=== PATIENT | female | born 1940 | race Caucasian/White ===

== ENCOUNTER 2024-06-07 09:20 | Observation (INO) ==
--- NOTE | 2024-06-07 13:32 | DR.H&P ---
H&P History & Physical for Day of: H&P Date: 06/07/24 Chief Complaint Chief Complaint: weakness, ccc, UTI History of Present Illness History of Present Illness: Pt is 83 WF, direct admit for Post Influenza pneumonia and UTI. Pt has taken a round of augmentin. pt continues to co diffuse weakness, dehydration. Pt has pmh AFIB, CHF, LLE DVT, DM2 Medications Home Medications: Home Medications Medication Instructions Recorded Confirmed Type aspirin 81 mg capsule 81 mg PO DAILY 07/24/21 07/24/21 History atorvastatin 20 mg tablet 20 mg PO QHS 07/24/21 06/07/24 History insulin detemir U-100 100 unit/mL 20 unit subcut HS 07/24/21 07/24/21 History (3 mL) subcutaneous pen (Levemir FlexTouch U-100 Insulin) levothyroxine 25 mcg tablet 25 mcg PO DAILY 07/24/21 06/07/24 History meloxicam 15 mg tablet 15 mg PO DAILY 07/24/21 06/07/24 History ropinirole 1 mg tablet 1 mg PO QHS 07/24/21 06/07/24 History amlodipine 5 mg tablet 5 mg PO BID 06/07/24 06/07/24 History apixaban 5 mg tablet (Eliquis) 5 mg PO BID blood clot 06/07/24 06/07/24 History bumetanide 1 mg tablet 1 mg PO BID edema 06/07/24 06/07/24 History gabapentin 100 mg capsule 100 mg PO BID 06/07/24 06/07/24 History hydroxyzine pamoate 25 mg capsule 25 mg PO BID PRN itch 06/07/24 06/07/24 History insulin glargine 100 unit/mL (3 10 unit subcut BID 06/07/24 06/07/24 History mL) subcutaneous pen (Lantus Solostar U-100 Insulin) losartan 50 mg tablet 50 mg PO BID 06/07/24 06/07/24 History metformin 1,000 mg tablet 1,000 mg PO BID 06/07/24 06/07/24 History Allergies Allergies Allergy/AdvReac Type Severity Reaction Status Date / Time No Known Drug Allergies Allergy Verified 07/24/21 08:31 Review of Systems Constitutional: Chills and Weakness Eyes: No Symptoms Reported ENT: No Symptoms Reported Respiratory: Cough, Shortness of Breath and Sputum Cardiovascular: No Symptoms Reported Gastrointestinal: Nausea Genitourinary: Dysuria Musculoskeletal: No Symptoms Reported Skin: No Symptoms Reported Neurological: Weakness Oriented: Normal Eyes: Normal Ear: Normal Nose: Normal Throat: Dry Respiratory: RLL Diminished and LLL Diminished Cardiovascular: Normal; negative Edema Auscultation: Bowel Sounds: Normal Palpation: Normal Tenderness: Normal Musculoskeletal: Motor Deficit Psychiatric: Normal Affect: Normal Speech Pattern: Clear and Appropriate Assessment/Plan (1) Influenza with pneumonia: Status: Acute Plan: ADMIT, IV ATBX, RESP CONSULT SPUTUM AND BLOOD CULTURES ON ADMISSION IV HYDRATION BP CONTROL, PRN SUPPLEMENTAL O2 (2) UTI (urinary tract infection): Status: Acute (3) Atrial fibrillation: Status: Acute
[2024-06-07] MEDS: ROBITUSSIN DM PO SCH (13:49)
[2024-06-07] MEDS: NS 1,000 ML IV 1,000 ML IV SCH (13:49)
[2024-06-07] MEDS: ROCEPHIN VIAL 1 GRAM 1 G in NS 100 ML IV 100 ML IV SCH (13:49)
[2024-06-07 13:56] LABS: BASOPHILS # (AUTO) 0.1 X10^3/uL (0.0-0.1); BASOPHILS % (AUTO) 0.8 % (0.2-1.0); EOSINOPHILS # (AUTO) 0.2 x10^3/uL (0.0-0.2); EOSINOPHILS % (AUTO) 1.6 % (0.9-2.9); HEMOGLOBIN 13.3 g/dL (12.0-16.0); LYMPHOCYTES # (AUTO) 2.1 X10^3/uL (1.3-2.9); LYMPHOCYTES % (AUTO) 20.2 % (21.0-51.0); MEAN CORPUSCULAR HEMOGLOBIN 29.8 pg (27.0-34.0); MEAN CORPUSCULAR HGB CONC 34.1 g/dL (33.0-35.0); MEAN CORPUSCULAR VOLUME 87.5 fL (80.0-100.0); MEAN PLATELET VOLUME 8.1 fL (7.4-11.0); MONOCYTES # (AUTO) 0.8 x10^3/uL (0.3-0.8); MONOCYTES % (AUTO) 7.8 % (0.0-13.0); NEUTROPHILS # (AUTO) 7.2 x10^3/uL (2.2-4.8); NEUTROPHILS % (AUTO) 69.6 % (42.0-75.0); PLATELET COUNT 443 X10^3/uL (150.0-450.0); RED BLOOD COUNT 4.46 X10^6/uL (3.5-5.4); RED CELL DISTRIBUTION WIDTH 14.8 % (11.6-16.5); WHITE BLOOD COUNT 10.4 X10^3/uL (3.6-10.0)
[2024-06-07 14:08] LABS: ALANINE AMINOTRANSFERASE 17 Units/L (12-78); ALBUMIN 3.7 g/dL (3.4-5.0); ALKALINE PHOSPHATASE 79 Units/L (46-116); ASPARTATE AMINO TRANSFERASE 12 Units/L (15-37); BLOOD UREA NITROGEN 25 mg/dL (7-18); CALCIUM 9.4 mg/dL (8.5-10.1); CARBON DIOXIDE 31.1 mmol/L (21-32); CHLORIDE 99 mmol/L (98-107); COR NA(FOR HYPERGLY) 141 mmol/L (136-145); CREATININE 1.01 mg/dL (0.55-1.02); GLUCOSE 172 mg/dL (65-99); SODIUM 139 mmol/L (136-145); TOTAL PROTEIN 8.5 g/dL (6.4-8.2); eGFR NON BLACK RACES 56 (>60)
[2024-06-07] MEDS: DUONEB 0.5 MG/3 MG (3 mL) NEB SCH (17:14)
[2024-06-07] MEDS: SNACK - Diabetic Appropriate PO SCH (20:02)
[2024-06-07] MEDS: LIPITOR TAB 20 MG PO SCH (20:23)
[2024-06-07] MEDS: ELIQUIS PO SCH (20:23)
[2024-06-07] MEDS: COZAAR PO SCH (20:23)
[2024-06-07] MEDS: REQUIP PO SCH (20:23)
[2024-06-07] MEDS: PULMICORT NEB TX 0.5 MG NEB SCH (20:48)
[2024-06-08 06:25] LABS: BASOPHILS # (AUTO) 0.1 X10^3/uL (0.0-0.1); BASOPHILS % (AUTO) 1.1 % (0.2-1.0); EOSINOPHILS # (AUTO) 0.2 x10^3/uL (0.0-0.2); EOSINOPHILS % (AUTO) 2.5 % (0.9-2.9); HEMATOCRIT 33.8 % (36.0-47.0); HEMOGLOBIN 11.7 g/dL (12.0-16.0); LYMPHOCYTES # (AUTO) 2.5 X10^3/uL (1.3-2.9); LYMPHOCYTES % (AUTO) 25.7 % (21.0-51.0); MEAN CORPUSCULAR HEMOGLOBIN 29.9 pg (27.0-34.0); MEAN CORPUSCULAR HGB CONC 34.5 g/dL (33.0-35.0); MEAN CORPUSCULAR VOLUME 86.7 fL (80.0-100.0); MEAN PLATELET VOLUME 8.3 fL (7.4-11.0); MONOCYTES # (AUTO) 0.7 x10^3/uL (0.3-0.8); MONOCYTES % (AUTO) 6.9 % (0.0-13.0); NEUTROPHILS # (AUTO) 6.1 x10^3/uL (2.2-4.8); NEUTROPHILS % (AUTO) 63.8 % (42.0-75.0); PLATELET COUNT 397 X10^3/uL (150.0-450.0); RED CELL DISTRIBUTION WIDTH 15.1 % (11.6-16.5); WHITE BLOOD COUNT 9.6 X10^3/uL (3.6-10.0)
[2024-06-08 06:43] LABS: ALANINE AMINOTRANSFERASE 16 Units/L (12-78); ALBUMIN 2.9 g/dL (3.4-5.0); ALKALINE PHOSPHATASE 61 Units/L (46-116); ASPARTATE AMINO TRANSFERASE 11 Units/L (15-37); BLOOD UREA NITROGEN 17 mg/dL (7-18); CALCIUM 8.7 mg/dL (8.5-10.1); CARBON DIOXIDE 29.1 mmol/L (21-32); CHLORIDE 103 mmol/L (98-107); COR CA(FOR HYPOALB) 9.6 mg/dL (8.5-10.1); CREATININE 0.79 mg/dL (0.55-1.02); GLUCOSE 99 mg/dL (65-99); POTASSIUM 3.8 mmol/L (3.5-5.1); SODIUM 140 mmol/L (136-145); TOTAL PROTEIN 6.8 g/dL (6.4-8.2); eGFR NON BLACK RACES > 60 (>60)
--- NOTE | 2024-06-08 07:16 | RAD ---
EXAM:Two-view chestHISTORY:PneumoniaCOMPARISON: 022FINDINGS:Heart is enlarged. No congestive heart failure is noted. Shy are normal. Lung peterson are clear. No pleural effusions or pneumothoraces identified. Bony thorax is unremarkable with the exception of increased thoracic kyphosis.IMPRESSION:Cardiomegaly without congestive heart failureNo acute infiltratesTHIS IS AN ELECTRONICALLY VERIFIED FINAL REPORT06/08/2024 7:12 AM - Electronically signed by Jose Carrasco MD
[2024-06-08] MEDS: NORVASC TAB 10 MG PO SCH (08:19)
[2024-06-08] MEDS: SYNTHROID 25 mcg TAB PO SCH (08:19)
[2024-06-08] MEDS: NovoLIN R (or HumuLIN R) SUBCUT PRN (18:08)
[2024-06-09 06:42] LABS: BASOPHILS # (AUTO) 0.1 X10^3/uL (0.0-0.1); BASOPHILS % (AUTO) 1.7 % (0.2-1.0); EOSINOPHILS # (AUTO) 0.2 x10^3/uL (0.0-0.2); HEMATOCRIT 30.8 % (36.0-47.0); HEMOGLOBIN 10.6 g/dL (12.0-16.0); LYMPHOCYTES # (AUTO) 1.8 X10^3/uL (1.3-2.9); LYMPHOCYTES % (AUTO) 22.3 % (21.0-51.0); MEAN CORPUSCULAR HEMOGLOBIN 30.1 pg (27.0-34.0); MEAN CORPUSCULAR HGB CONC 34.3 g/dL (33.0-35.0); MEAN CORPUSCULAR VOLUME 87.9 fL (80.0-100.0); MEAN PLATELET VOLUME 8.6 fL (7.4-11.0); MONOCYTES # (AUTO) 0.8 x10^3/uL (0.3-0.8); MONOCYTES % (AUTO) 9.6 % (0.0-13.0); NEUTROPHILS # (AUTO) 5.2 x10^3/uL (2.2-4.8); NEUTROPHILS % (AUTO) 64.4 % (42.0-75.0); PLATELET COUNT 348 X10^3/uL (150.0-450.0); RED BLOOD COUNT 3.51 X10^6/uL (3.5-5.4); RED CELL DISTRIBUTION WIDTH 15.1 % (11.6-16.5)
[2024-06-09 06:59] LABS: ALANINE AMINOTRANSFERASE 14 Units/L (12-78); ALBUMIN 2.8 g/dL (3.4-5.0); ALKALINE PHOSPHATASE 58 Units/L (46-116); ASPARTATE AMINO TRANSFERASE 8 Units/L (15-37); BLOOD UREA NITROGEN 20 mg/dL (7-18); CALCIUM 8.4 mg/dL (8.5-10.1); CARBON DIOXIDE 28.2 mmol/L (21-32); CHLORIDE 107 mmol/L (98-107); COR CA(FOR HYPOALB) 9.4 mg/dL (8.5-10.1); COR NA(FOR HYPERGLY) 143 mmol/L (136-145); CREATININE 0.98 mg/dL (0.55-1.02); GLUCOSE 140 mg/dL (65-99); MAGNESIUM 1.5 mg/dL (2.0-2.9); POTASSIUM 3.9 mmol/L (3.5-5.1); SODIUM 142 mmol/L (136-145); TOTAL PROTEIN 6.5 g/dL (6.4-8.2); eGFR NON BLACK RACES 58 (>60)
[2024-06-09] MEDS ORDERED: CONSULT PHARMACY - POTASSIUM & MAGNESIUM XX SCH (08:00)
[2024-06-09 08:01] VITALS: RESP 17; TEMP 98.2
[2024-06-09] MEDS: MAG-OX TAB PO SCH (08:08)
[2024-06-09] MEDS: NS 1,000 ML IV 1,000 ML with MAGNESIUM SULFATE 50% INJ VIAL 2 G IV SCH (09:53)
[2024-06-09 11:51] VITALS: BP 110/57; PULSE 72; O2SAT 98
== END 2024-06-09 13:15 | disposition home health service (06) ==
LOC: MED/SURG
PROVIDERS: ADMIT Internal Medicine; ATTEND Internal Medicine
DX: B96.29 Other Escherichia coli [E. coli] as the cause of diseases classified elsewhere; J10.1 Influenza due to other identified influenza virus with other respiratory manifestations; E11.65 Type 2 diabetes mellitus with hyperglycemia; I48.91 Unspecified atrial fibrillation; J16.8 Pneumonia due to other specified infectious organisms; N39.0 Urinary tract infection, site not specified; R53.1 Weakness; R26.89 Other abnormalities of gait and mobility